=== PATIENT | male | born 1955 | race Caucasian/White ===

== ENCOUNTER → 2017-09-10 | Outpatient (CLI) | payer OTHER ==
[~2017-09-10] MED LIST: COLC0.6T6 PO; DOCU-144 PO; HYDR-3498 PO
--- NOTE | 2017-09-10 16:22 | RADRPT ---
PROCEDURE: XR Knees. CLINICAL INDICATION: Bilateral knee pain. TECHNIQUE: Total of six views. Frontal, oblique, and lateral views of both knees. COMPARISON: No prior study is available for comparison. FINDINGS: On the right side, there are degenerative changes with osteophytes arising from the lateral joint co mpartment margins. There is no joint space narrowing or deformity. On the left side, there are degenerative changes with osteophytes arising from all 3 joint compartme nt margins. There is medial and patellofemoral joint compartment narrowing. Articular surfaces are intact. There is no lytic or blastic lesion. There is no radiopaque foreign body. IMPRESSION: 1. Mild degenerative changes of the right knee. 2. Moderate degenerative changes of the left knee. RPTAT: QQ .Jeff Price MD, Date Time Electronically viewed and signed by .Jeff Price MD, on 09/10/2017 16:22 .R/
--- NOTE | 2017-09-11 02:47 | HKNOTE ---
DATE OF SERVICE: 09/10/2017 CHIEF COMPLAINT: Left knee pain. HISTORY OF PRESENT ILLNESS: This is a 62-year-old male who is complaining of chronic left knee pain . He states that the pain is mostly on the inside of his knee. He has previously seen Dr. Dea moreno. He has had a series of Supartz injections. His last injection was in December 2016. The inject ion provided him with pain relief. 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 He does not use any assistive devices. He does not use any braces. He does not take any pain medications. He denies any groin or back pain. GAIT: Nonantalgic gait, no use of assistive device. LEFT KNEE EXAMINATION: No previous incisions. Neutral alignment. Tender over the medial joint philipp e. Nontender over the lateral joint line. 0 to 130 degrees range of motion. Stable to varus and v algus stress. Negative Eric. Negative anterior drawer. Negative posterior drawer. Negative Mc Galeano. MOTOR EXAM: 5/5 hamstrings, quadriceps, tibialis anterior, gastroc soleus. IMAGING: X-rays, left knee. X-rays taken in the office demonstrate medial joint space narrowing wi th marginal osteophytes. There are also degenerative changes with the osteophytes of the patellofem oral joint. IMPRESSION: A 62-year-old male with left knee osteoarthritis. PLAN: We will request authorization for left knee monovisc injection. He will return for a left kn ee injection following approval. Dictated By: AMANDA VAN/DONNA Conf#: [id number] DID#: [id number]
== END | disposition home or self-care (01) ==
LOC: HKI 13:36
PROVIDERS: ATTEND Orthopaedic Surgery Adult Reconstructive Orthopaedic Surgery
DX: M17.12 Unilateral primary osteoarthritis, left knee (principal)
CPT/HCPCS: 73562; Z7500; G0463

== ENCOUNTER → 2017-10-01 | Outpatient (CLI) | payer OTHER ==
--- NOTE | 2017-10-01 13:58 | PN ---
Date/Time of Note Date/Time of Note DATE: 10/01/17 TIME: 13:53 Outpatient Progress Note Chief Complaint Left knee Monovisc injection HPI 62-year-old male presents today for follow-up for left knee osteoarthritis for Monovisc injection. History is significant for Supartz injection was provided significant relief. Last injection was in December 2016. Continues with progressive degenerative osteoarthritis creating ongoing pain complaints especially with weightbearing activities. 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 Denies any falls or injury since he was last seen on September 10. Review of Systems Const: No Fever, no chills, no Fatigue, normal appetite, no diaphoresis. Resp: No SOB, no wheezing, no chest pain. CV: No chest pain, no palpitaions, no SANTACRUZ. Physical Exam Blood pressure is 110/73, temperature is 99.2, pulse is 65, respiratory rate is 12, height is 5 foot 8 inches, weight is 180 pounds General Appearance: well-developed, well-nourished, in no acute distress. Left knee: Tenderness to palpation primarily to the medial compartment of the left knee. Patient is able to perform full range of motion but noted crepitus to the patellofemoral as well as medial compartment. Negative Eric's test or Juan Manuel's test. 5/5 strength on resistance. Normal sensory examination to light touch. Allergies Coded Allergies: haloperidol (Verified Adverse Reaction, kelly Sykes, 06/29/15) Assessment/Plan Problems: (1) Osteoarthritis of left knee * Monovisc injection performed today. Area was cleaned and sterilized with Betadine swab. Using 25-gauge needle, local anesthesia was achieved with 1% lidocaine (4 cc injected). Using 22-gauge needle gel injection was performed after local anesthesia was achieved. Patient was observed for 5-10 minutes status post injection and then discharged. * Continue with anti-inflammatories as needed for pain complaints. Patient is aware that should conservative measures fail, he is a Candidate for total knee arthroplasty surgical intervention. Risks regarding surgical intervention discussed with patient. * Follow-up 6 weeks for repeat evaluation status post gel injection. Patient was advised that he may follow-up sooner should he experience any issue. Medications Home Meds Reported Medications Colchicine* (Colcrys*) 0.6 Mg Tablet, 0.6 MG PO, TAB 05/11/15 Docusate Sodium* (Colace*) 100 Mg Capsule, 100 MG PO DAILY, CAP 05/11/15 Hydrocodone Bit-Acetaminophen* (Wilber*) 5-325 Mg Tab, 1 TAB PO Q4H Y for PAIN LEVEL 6-10, TAB 05/11/15 PABLO YI PA-C Oct 01, 2017 13:58
--- NOTE | 2017-10-01 15:56 | HKNOTE ---
DATE OF SERVICE: 10/01/2017 CHIEF COMPLAINT: Left knee pain. HISTORY OF PRESENT ILLNESS: This is a 62-year-old male with a history of left knee osteoarthritis. He is here today complaining of left knee pain. He has difficulty with activities of daily living. He denies any groin or back pain. LEFT KNEE EXAM: No previous injections. Neutral alignment. Tender over the medial joint line, non tender over the lateral joint, 0 to 130 degrees range of motion stable to varus and valgus stress, n egative Eric, negative anterior drawer, negative posterior drawer, negative Juan Manuel's. IMPRESSION: A 62-year-old male with left knee osteoarthritis. PLAN: After obtaining consent, the left knee was prepped and draped in the usual sterile fashion. An injection of Monovisc was injected through the lateral portal under sterile technique. There wer e no complications. He tolerated the procedure well. He was advised to ice and elevate the left kn ee. He will follow up in 6 weeks. Dictated By: AMANDA VAN/DONNA Conf#: [id number] DID#: [id number]
== END | disposition home or self-care (01) ==
LOC: HKI 13:20
PROVIDERS: ATTEND Orthopaedic Surgery Adult Reconstructive Orthopaedic Surgery
DX: M17.12 Unilateral primary osteoarthritis, left knee (principal)
CPT/HCPCS: 20610; J7327; Z7500; Z7610; G0463

== ENCOUNTER → 2017-10-21 | Outpatient (CLI) | payer OTHER ==
--- NOTE | 2017-10-22 06:45 | HKNOTE ---
DATE OF SERVICE: 10/21/2017 CHIEF COMPLAINT: Left knee pain. HISTORY OF PRESENT ILLNESS: This is a 62-year-old male with left knee osteoarthritis who is here to day for reevaluation. He had an injection of Monovisc approximately 6 weeks ago. He states that he continues to have pain in the left knee. He has difficulty ambulating due to the pain. He cannot take ibuprofen due to gastrointestinal ulcers. The pain is sharp. There is no radiation. It inter feres with his activities of daily living. He denies any groin or back pain. GAIT: Antalgic gait, reciprocal gait pattern. LEFT KNEE EXAMINATION: Tender over the medial joint line. Nontender over the lateral joint line, 0 to 130 degrees range of motion neutral alignment. Negative Juan Manuel's, negative Eric, negative anterior drawer, negative posterior drawer. IMPRESSION: A 62-year-old male with left knee osteoarthritis. PLAN: I discussed with Mr. Matthew that I will continue to monitor him. He will follow up in 6 week s. If he continues to have pain at that time, we will request authorization for a repeat injection of Monovisc. I also discussed with him the need for a knee replacement. At this time, he is not re jorge alberto for surgery. I will see him back in 6 weeks. Dictated By: AMANDA VAN/DONNA Conf#: [id number] DID#: [id number]
== END | disposition home or self-care (01) ==
LOC: HKI 08:30
PROVIDERS: ATTEND Orthopaedic Surgery Adult Reconstructive Orthopaedic Surgery
DX: M17.12 Unilateral primary osteoarthritis, left knee (principal)
CPT/HCPCS: G0463

== ENCOUNTER → 2017-12-17 | Outpatient (CLI) | END | disposition home or self-care (01) ==

== ENCOUNTER → 2017-12-23 | Outpatient (CLI) | END | disposition home or self-care (01) ==